=== PATIENT | female | born 1945 | race Caucasian/White ===

== ENCOUNTER 2017-08-28 00:21 | Inpatient (IN) | payer MEDICARE, OTHER, BC, MEDICAID ==
[2017-08-28] MEDS: ONDANSETRON 4 MG INJ IV (03:01)
[2017-08-28] MEDS: LOPERAMIDE 2 MG CAP PO (03:03)
[2017-08-28] MEDS: MECLIZINE 12.5 MG TAB PO (03:03)
[2017-08-28 03:06] LABS: ADD MAN DIFF? NO
[2017-08-28 03:07] LABS: BASOPHILS % 0.2 % (0.0-2.0); EOSINOPHILS # 0.2 10^3/ul (0.0-0.5); EOSINOPHILS % 1.2 % (0.0-7.0); HEMATOCRIT 35.4 % (37.0-47.0); HEMOGLOBIN 11.8 g/dl (12.0-16.0); LYMPHOCYTES # 1.4 10^3/ul (0.8-2.9); LYMPHOCYTES % 10.7 % (15.0-51.0); MEAN CORPUSCULAR HEMOGLOBIN 28.6 pg (29.0-33.0); MEAN CORPUSCULAR HGB CONC 33.3 g/dl (32.0-37.0); MEAN CORPUSCULAR VOLUME 85.9 fl (82.0-101.0); MEAN PLATELET VOLUME 11.9 fl (7.4-10.4); MONOCYTE # 1.1 10^3/ul (0.3-0.9); MONOCYTES % 8.6 % (0.0-11.0); NEUTROPHIL # 10.3 10^3/ul (1.6-7.5); PLATELET COUNT 189 10^3/UL (140-415); RED BLOOD COUNT 4.12 10^6/ul (4.20-5.40); RED CELL DISTRIBUTION WIDTH 12.6 % (11.5-14.5)
[2017-08-28 03:30] LABS: INR 0.83; PROTIME 11.5 Sec (11.9-14.9); PT RATIO 0.9
[2017-08-28 03:31] LABS: PARTIAL THROMBOPLASTIN TIME 30.3 Sec (25.0-35.0)
[2017-08-28 03:34] LABS: ALANINE AMINOTRANSFERASE 31 IU/L (13-69); ALBUMIN 3.8 g/dl (3.3-4.9); ALBUMIN/GLOBULIN RATIO 1.26; ALKALINE PHOSPHATASE 124 IU/L (42-121); ANION GAP 14 (8-16); ASPARTATE AMINO TRANSFERASE 31 IU/L (15-46); BILIRUBIN,INDIRECT 0.1 mg/dl (0-1.1); BILIRUBIN,TOTAL 0.1 mg/dl (0.2-1.3); BLOOD UREA NITROGEN 32 mg/dl (7-20); CALCIUM 8.4 mg/dl (8.4-10.2); CARBON DIOXIDE 23 mmol/L (21-31); CHLORIDE 96 mmol/L (97-110); CREATININE 1.78 mg/dl (0.44-1.00); GLUCOSE 104 mg/dl (70-220); LIPASE 72 U/L (23-300); POTASSIUM 5.8 mmol/L (3.5-5.1); SODIUM 127 mmol/L (135-144); TOTAL PROTEIN 6.8 g/dl (6.1-8.1)
[2017-08-28 04:03] LABS: URINE BLOOD (Dip) POC Negative (NEGATIVE); URINE GLUCOSE (Dip) POC Negative (NEGATIVE); URINE KETONES (Dip) POC Negative (NEGATIVE); URINE LEUKOCYTE EST (Dip) POC Trace (NEGATIVE); URINE NITRITE (Dip) POC Negative (NEGATIVE); URINE TOTAL PROTEIN POC Negative (NEGATIVE)
[2017-08-28] MEDS: ALBUTEROL 0.5% (NEB) 2.5 MG/0.5 ML AMP INH (04:13)
[2017-08-28] MEDS: DEXTROSE 50% 50 ML SYRINGE IV (05:11)
[2017-08-28] MEDS: SOD CHLORIDE 0.9% 500 ML IV (05:12)
[2017-08-28] MEDS: INSULIN REGULAR, HUMAN 100 UNIT/1 ML 3ML VIAL IV (05:13)
[2017-08-28] MEDS: SOD CHLORIDE 0.9% 1,000 ML IV ×2 (05:13→19:31)
[2017-08-28] MEDS: LEVOFLOXACIN 750MG/D5W (PMX) 150 ML IVPB (05:30)
[2017-08-28] MEDS ORDERED: ONDANSETRON 4 MG INJ IV (05:30)
[2017-08-28] MEDS ORDERED: NACL 0.9% 3 ML SYG IV (05:30)
[2017-08-28 08:07] LABS: B-TYPE NATRIURETIC PEPTIDE 2230 PG/ML (0-125)
[2017-08-28] MEDS: NA POLYST SULFON 15 GM/60 ML BTL PO (10:28)
[2017-08-28] MEDS: ENOXAPARIN 30 MG/0.3 ML SYG SC (10:56)
[2017-08-29 06:15] LABS: ADD MAN DIFF? NO
[2017-08-29 06:18] LABS: BASOPHILS % 0.4 % (0.0-2.0); EOSINOPHILS # 0.2 10^3/ul (0.0-0.5); EOSINOPHILS % 1.8 % (0.0-7.0); HEMATOCRIT 38.4 % (37.0-47.0); HEMOGLOBIN 12.3 g/dl (12.0-16.0); LYMPHOCYTES # 1.8 10^3/ul (0.8-2.9); LYMPHOCYTES % 21.1 % (15.0-51.0); MEAN CORPUSCULAR HEMOGLOBIN 28.6 pg (29.0-33.0); MEAN CORPUSCULAR VOLUME 89.3 fl (82.0-101.0); MEAN PLATELET VOLUME 11.6 fl (7.4-10.4); MONOCYTES % 12.4 % (0.0-11.0); NEUTROPHIL # 5.3 10^3/ul (1.6-7.5); NEUTROPHILS % 64.1 % (39.0-77.0); PLATELET COUNT 204 10^3/UL (140-415); RED CELL DISTRIBUTION WIDTH 13.2 % (11.5-14.5)
[2017-08-29 06:18] LABS: WHITE BLOOD COUNT 8.3 10^3/ul (4.8-10.8)
[2017-08-29 07:12] LABS: ALANINE AMINOTRANSFERASE 25 IU/L (13-69); ALBUMIN/GLOBULIN RATIO 1.21; ALKALINE PHOSPHATASE 111 IU/L (42-121); ANION GAP 14 (8-16); ASPARTATE AMINO TRANSFERASE 25 IU/L (15-46); BILIRUBIN,INDIRECT 0.2 mg/dl (0-1.1); BILIRUBIN,TOTAL 0.2 mg/dl (0.2-1.3); BLOOD UREA NITROGEN 15 mg/dl (7-20); CALCIUM 8.9 mg/dl (8.4-10.2); CARBON DIOXIDE 23 mmol/L (21-31); CHLORIDE 109 mmol/L (97-110); CHOL/HDL RATIO 4.7 RATIO; CHOLESTEROL 170 mg/dl (100-200); CREATININE 1.28 mg/dl (0.44-1.00); GLUCOSE 99 mg/dl (70-220); HDL CHOLESTEROL 36 mg/dl (33-92); LDL CHOLESTEROL,CALCULATED 105 mg/dl; POTASSIUM 5.1 mmol/L (3.5-5.1); SODIUM 141 mmol/L (135-144); TOTAL PROTEIN 7.3 g/dl (6.1-8.1); TRIGLYCERIDES 144 mg/dl (0-149)
[2017-08-29 08:01] LABS: HEMOGLOBIN A1C 5.9 % (0-5.9)
[2017-08-29 08:13] LABS: THYROID STIMULATING HORMONE 0.583 MIU/L (0.465-4.680)
[2017-08-29] MEDS: SOD CHLORIDE 0.9% 1,000 ML IV ×2 (09:49→18:51)
[2017-08-29] MEDS: ENOXAPARIN 30 MG/0.3 ML SYG SC (10:17)
[2017-08-30] MEDS: SOD CHLORIDE 0.9% 1,000 ML IV ×2 (00:07→09:09)
[2017-08-30] MEDS: LEVOFLOXACIN 750MG/D5W (PMX) 150 ML IVPB (05:42)
[2017-08-30] MEDS: ENOXAPARIN 30 MG/0.3 ML SYG SC (09:10)
[2017-08-30] MEDS: AMLODIPINE 5 MG TAB PO ×2 (12:00→13:55)
[2017-08-30 12:52] LABS: ANION GAP 12 (8-16); BLOOD UREA NITROGEN 14 mg/dl (7-20); CALCIUM 9.1 mg/dl (8.4-10.2); CARBON DIOXIDE 26 mmol/L (21-31); CHLORIDE 104 mmol/L (97-110); CREATININE 0.94 mg/dl (0.44-1.00); GLUCOSE 115 mg/dl (70-220); SODIUM 137 mmol/L (135-144)
[2017-08-30] MEDS: ACETAMINOPHEN 325 MG TAB PO (20:54)
[2017-08-30] MEDS: hydrALAzine 20 MG INJ IV (20:54)
[2017-08-30] MEDS ORDERED: morphine 4 MG/ML VIAL (22:42)
[2017-08-30] MEDS: morphine 2 MG INJ IV (22:43)
[2017-08-31 05:03] LABS: ADD MAN DIFF? NO
[2017-08-31 05:08] LABS: BASOPHILS % 0.4 % (0.0-2.0); EOSINOPHILS # 0.3 10^3/ul (0.0-0.5); EOSINOPHILS % 2.9 % (0.0-7.0); HEMATOCRIT 35.3 % (37.0-47.0); HEMOGLOBIN 11.6 g/dl (12.0-16.0); LYMPHOCYTES # 2.2 10^3/ul (0.8-2.9); LYMPHOCYTES % 23.8 % (15.0-51.0); MEAN CORPUSCULAR HGB CONC 32.9 g/dl (32.0-37.0); MEAN CORPUSCULAR VOLUME 88.3 fl (82.0-101.0); MEAN PLATELET VOLUME 11.9 fl (7.4-10.4); MONOCYTE # 0.9 10^3/ul (0.3-0.9); MONOCYTES % 10.2 % (0.0-11.0); NEUTROPHIL # 5.6 10^3/ul (1.6-7.5); NEUTROPHILS % 62.4 % (39.0-77.0); PLATELET COUNT 186 10^3/UL (140-415); RED CELL DISTRIBUTION WIDTH 13.1 % (11.5-14.5)
[2017-08-31] MEDS: SOD CHLORIDE 0.9% 1,000 ML IV ×2 (05:15→08:32)
[2017-08-31 05:46] LABS: ANION GAP 14 (8-16); BLOOD UREA NITROGEN 14 mg/dl (7-20); CALCIUM 8.8 mg/dl (8.4-10.2); CARBON DIOXIDE 24 mmol/L (21-31); CHLORIDE 102 mmol/L (97-110); CREATININE 0.98 mg/dl (0.44-1.00); GLUCOSE 109 mg/dl (70-220); POTASSIUM 4.7 mmol/L (3.5-5.1); SODIUM 135 mmol/L (135-144)
[2017-08-31] MEDS: ACETAMINOPHEN 325 MG TAB PO ×2 (08:29→16:21)
[2017-08-31] MEDS: AMLODIPINE 5 MG TAB PO (08:30)
[2017-08-31] MEDS: ENOXAPARIN 30 MG/0.3 ML SYG SC (08:31)
[2017-08-31] MEDS: hydrALAzine 20 MG INJ IV (11:30)
[2017-08-31] MEDS: morphine 2 MG INJ IV (21:38)
[2017-09-01 05:07] LABS: WHITE BLOOD COUNT 9.2 10^3/ul (4.8-10.8)
[2017-09-01 05:07] LABS: ADD MAN DIFF? NO; BASOPHILS % 0.4 % (0.0-2.0); EOSINOPHILS # 0.4 10^3/ul (0.0-0.5); EOSINOPHILS % 3.9 % (0.0-7.0); HEMATOCRIT 37.4 % (37.0-47.0); LYMPHOCYTES # 2.2 10^3/ul (0.8-2.9); LYMPHOCYTES % 23.7 % (15.0-51.0); MEAN CORPUSCULAR HEMOGLOBIN 28.7 pg (29.0-33.0); MEAN CORPUSCULAR HGB CONC 32.1 g/dl (32.0-37.0); MEAN CORPUSCULAR VOLUME 89.5 fl (82.0-101.0); MEAN PLATELET VOLUME 11.7 fl (7.4-10.4); MONOCYTE # 0.9 10^3/ul (0.3-0.9); MONOCYTES % 10.2 % (0.0-11.0); NEUTROPHIL # 5.6 10^3/ul (1.6-7.5); NEUTROPHILS % 61.5 % (39.0-77.0); PLATELET COUNT 224 10^3/UL (140-415); RED BLOOD COUNT 4.18 10^6/ul (4.20-5.40); RED CELL DISTRIBUTION WIDTH 13.2 % (11.5-14.5)
[2017-09-01] MEDS: LEVOFLOXACIN 750 MG TABLET PO (05:11)
[2017-09-01 05:36] LABS: ANION GAP 14 (8-16); BLOOD UREA NITROGEN 16 mg/dl (7-20); CALCIUM 9.2 mg/dl (8.4-10.2); CARBON DIOXIDE 27 mmol/L (21-31); CHLORIDE 104 mmol/L (97-110); GLUCOSE 106 mg/dl (70-220); POTASSIUM 4.7 mmol/L (3.5-5.1); SODIUM 140 mmol/L (135-144)
[2017-09-01] MEDS: ACETAMINOPHEN 325 MG TAB PO (07:07)
[2017-09-01] MEDS: AMLODIPINE 5 MG TAB PO (08:27)
[2017-09-01] MEDS: ENOXAPARIN 30 MG/0.3 ML SYG SC (08:28)
[2017-09-01] MEDS: LOSARTAN 25 MG TAB PO (08:28)
[2017-09-01] MEDS: SOD CHLORIDE 0.9% 1,000 ML IV (09:19)
[2017-09-01] MEDS: REGADENOSON 0.4 MG/5 ML SYG ×2 (11:31→12:45)
== END 2017-09-01 20:35 | disposition home or self-care (01) | DRG 682 ==
LOC: E/R 00:21 → MS3 04:23
DX: N17.9 Acute kidney failure, unspecified (principal); J18.9 Pneumonia, unspecified organism; E87.5 Hyperkalemia; E87.1 Hypo-osmolality and hyponatremia; D72.829 Elevated white blood cell count, unspecified; J45.909 Unspecified asthma, uncomplicated; R91.1 Solitary pulmonary nodule; I10 Essential (primary) hypertension; B34.9 Viral infection, unspecified
CPT/HCPCS: 36415; 70450; 71045; 71250; 74176; 78452; 80048; 80053; 80061; 81003; 82962; 83036; 83690; 83880; 84443; 85025; 85610; 85730; 87086; 93005; 93017; 93306; 94644; 96374; 96375; 99285-25

== ENCOUNTER 2017-09-07 10:46 | Inpatient (IN) | payer MEDICARE, OTHER ==
[2017-09-07] MEDS: ALBUTEROL 0.5% (NEB) 2.5 MG/0.5 ML AMP INH (16:21)
[2017-09-07] MEDS: IPRATROPIUM (NEB) 0.5 MG/2.5 ML AMP INH (16:21)
[2017-09-07] MEDS: METHYLPREDNISOLONE 125 MG INJ IV (16:28)
[2017-09-07 16:30] LABS: ADD MAN DIFF? NO
[2017-09-07 16:32] LABS: WHITE BLOOD COUNT 12.1 10^3/ul (4.8-10.8)
[2017-09-07 16:32] LABS: BASOPHILS % 0.3 % (0.0-2.0); EOSINOPHILS # 0.1 10^3/ul (0.0-0.5); EOSINOPHILS % 0.5 % (0.0-7.0); HEMATOCRIT 36.6 % (37.0-47.0); HEMOGLOBIN 12.2 g/dl (12.0-16.0); LYMPHOCYTES # 1.6 10^3/ul (0.8-2.9); LYMPHOCYTES % 13.3 % (15.0-51.0); MEAN CORPUSCULAR HEMOGLOBIN 29.4 pg (29.0-33.0); MEAN CORPUSCULAR HGB CONC 33.3 g/dl (32.0-37.0); MEAN CORPUSCULAR VOLUME 88.2 fl (82.0-101.0); MEAN PLATELET VOLUME 11.5 fl (7.4-10.4); NEUTROPHIL # 9.4 10^3/ul (1.6-7.5); NEUTROPHILS % 77.6 % (39.0-77.0); PLATELET COUNT 234 10^3/UL (140-415); RED BLOOD COUNT 4.15 10^6/ul (4.20-5.40); RED CELL DISTRIBUTION WIDTH 13.1 % (11.5-14.5)
[2017-09-07] MEDS: ONDANSETRON 4 MG INJ IV (16:44)
[2017-09-07 16:53] LABS: INR 0.88; PT RATIO 0.9
[2017-09-07 16:54] LABS: PARTIAL THROMBOPLASTIN TIME 31.5 Sec (25.0-35.0)
[2017-09-07 16:57] LABS: ALANINE AMINOTRANSFERASE 21 IU/L (13-69); ALBUMIN 4.3 g/dl (3.3-4.9); ALBUMIN/GLOBULIN RATIO 1.26; ALKALINE PHOSPHATASE 104 IU/L (42-121); ANION GAP 17 (8-16); ASPARTATE AMINO TRANSFERASE 27 IU/L (15-46); BILIRUBIN,INDIRECT 0.2 mg/dl (0-1.1); BILIRUBIN,TOTAL 0.2 mg/dl (0.2-1.3); BLOOD UREA NITROGEN 22 mg/dl (7-20); CALCIUM 8.8 mg/dl (8.4-10.2); CARBON DIOXIDE 22 mmol/L (21-31); CHLORIDE 104 mmol/L (97-110); CREATINE KINASE 62 IU/L (23-200); CREATININE 0.98 mg/dl (0.44-1.00); GLUCOSE 123 mg/dl (70-220); POTASSIUM 4.8 mmol/L (3.5-5.1); SODIUM 138 mmol/L (135-144); TOTAL PROTEIN 7.7 g/dl (6.1-8.1)
[2017-09-07 16:58] LABS: AADO2 Arterial 273.4 mmHg (7.0-24.0); Allen Test ACCEPTAB; Arterial Base Excess -1.7 mmol/L (-3.0-3); Arterial Blood Gas Oxygen Sat 97.9 mmHG (95.0-100.0); Arterial COHb 0.4 % (0.0-3.0); Arterial Fraction of Oxyhgb 97.4 % (93.0-99.0); Arterial HCO3 22.8 mmol/L (22.0-26.0); Arterial MetHb 0.1 % (0.0-1.5); Arterial Total Hemglobin 12.3 g/dl (12.0-18.0); Arterial pCO2 37.5 mmhg (35-45); MODE MASK - SIMPLE; Site Right Radial
[2017-09-07 17:08] LABS: B-TYPE NATRIURETIC PEPTIDE 3190 PG/ML (0-125); CK INDEX 1.7; CK-MB 1.07 ng/ml (0.0-2.4)
[2017-09-07 17:18] LABS: TROPONIN-I < 0.012 ng/ml (0.00-0.12)
[2017-09-07] MEDS ORDERED: ACETAMINOPHEN 325 MG TAB PO (18:00)
[2017-09-07] MEDS ORDERED: ONDANSETRON 4 MG INJ IV (18:00)
[2017-09-07] MEDS: SODIUM CHLORIDE 0.9% 1L BAG IV* (18:04)
[2017-09-07] MEDS: PIPER-TAZO 3.375 GM IV (PMX) 100 ML IVPB (18:21)
[2017-09-07] MEDS ORDERED: AZITHROMYCIN 500MG/NS (PMX) 250 ML IVPB (19:00)
[2017-09-07] MEDS ORDERED: CEFTRIAXONE 1 GM/50 ML (PMX) 50 ML IVPB ×2 (19:00→23:30)
[2017-09-07] MEDS: LEVALBUTEROL (NEB) 0.63 MG/3 ML AMP HHN (19:30)
[2017-09-07] MEDS: VANCOMYCIN 1 GM (PMX) 250 ML IVPB (19:39)
[2017-09-07 20:15] LABS: LACTIC ACID 1.3 mmol/L (0.5-2.0)
[2017-09-07] MEDS: ENOXAPARIN 40 MG/0.4 ML SYG SC (21:32)
[2017-09-07] MEDS: SOD CHLORIDE 0.9% 100 ML (21:40)
[2017-09-07] MEDS: IOHEXOL 300MG/ML 150 ML BTL (21:41)
[2017-09-07 22:50] LABS: LACTIC ACID 2.3 mmol/L (0.5-2.0)
[2017-09-07] MEDS: CEFTRIAXONE 1 GM/50 ML (PMX) 50 ML IVPB (23:10)
[2017-09-07] MEDS: AZITHROMYCIN 500MG/NS (PMX) 250 ML IVPB (23:37)
[2017-09-07] MEDS: ACETAMINOPHEN 325 MG TAB PO (23:49)
[2017-09-08 05:59] LABS: ADD MAN DIFF? NO
[2017-09-08 06:07] LABS: HEMATOCRIT 32.6 % (37.0-47.0); HEMOGLOBIN 10.7 g/dl (12.0-16.0); LYMPHOCYTES # 0.8 10^3/ul (0.8-2.9); LYMPHOCYTES % 12.5 % (15.0-51.0); MEAN CORPUSCULAR HEMOGLOBIN 29.2 pg (29.0-33.0); MEAN CORPUSCULAR HGB CONC 32.8 g/dl (32.0-37.0); MEAN CORPUSCULAR VOLUME 89.1 fl (82.0-101.0); MONOCYTES % 0.7 % (0.0-11.0); NEUTROPHIL # 5.2 10^3/ul (1.6-7.5); NEUTROPHILS % 86.3 % (39.0-77.0); PLATELET COUNT 207 10^3/UL (140-415); RED BLOOD COUNT 3.66 10^6/ul (4.20-5.40); RED CELL DISTRIBUTION WIDTH 13.3 % (11.5-14.5)
[2017-09-08 06:22] LABS: LACTIC ACID 0.8 mmol/L (0.5-2.0)
[2017-09-08 06:30] LABS: BLOOD UREA NITROGEN 23 mg/dl (7-20); CALCIUM 8.7 mg/dl (8.4-10.2); CARBON DIOXIDE 22 mmol/L (21-31); CHLORIDE 105 mmol/L (97-110); CREATININE 1.09 mg/dl (0.44-1.00); GLUCOSE 148 mg/dl (70-220); SODIUM 138 mmol/L (135-144)
[2017-09-08 06:34] LABS: CREATINE KINASE 46 IU/L (23-200)
[2017-09-08 06:47] LABS: CK INDEX 2.2; CK-MB 1.02 ng/ml (0.0-2.4)
[2017-09-08 07:22] LABS: TROPONIN-I < 0.012 ng/ml (0.00-0.12)
[2017-09-08 07:25] LABS: ANION GAP 16 (8-16)
[2017-09-08] MEDS: LOSARTAN 25 MG TAB PO ×2 (08:28→08:30)
[2017-09-08] MEDS: ENOXAPARIN 40 MG/0.4 ML SYG SC (08:34)
[2017-09-08] MEDS: LEVALBUTEROL (NEB) 0.63 MG/3 ML AMP HHN ×3 (09:00→16:58)
[2017-09-08] MEDS: CEFTRIAXONE 1 GM/50 ML (PMX) 50 ML IVPB (21:27)
[2017-09-08] MEDS: AZITHROMYCIN 500MG/NS (PMX) 250 ML IVPB (22:35)
[2017-09-09 05:50] LABS: ADD MAN DIFF? NO
[2017-09-09 05:58] LABS: BASOPHILS % 0.1 % (0.0-2.0); EOSINOPHILS # 0.1 10^3/ul (0.0-0.5); EOSINOPHILS % 0.5 % (0.0-7.0); HEMATOCRIT 31.7 % (37.0-47.0); HEMOGLOBIN 10.1 g/dl (12.0-16.0); LYMPHOCYTES # 2.3 10^3/ul (0.8-2.9); LYMPHOCYTES % 16.3 % (15.0-51.0); MEAN CORPUSCULAR HEMOGLOBIN 28.9 pg (29.0-33.0); MEAN CORPUSCULAR HGB CONC 31.9 g/dl (32.0-37.0); MEAN CORPUSCULAR VOLUME 90.8 fl (82.0-101.0); MEAN PLATELET VOLUME 11.9 fl (7.4-10.4); MONOCYTE # 1.2 10^3/ul (0.3-0.9); MONOCYTES % 8.4 % (0.0-11.0); NEUTROPHIL # 10.2 10^3/ul (1.6-7.5); NEUTROPHILS % 74.3 % (39.0-77.0); PLATELET COUNT 215 10^3/UL (140-415); RED BLOOD COUNT 3.49 10^6/ul (4.20-5.40); RED CELL DISTRIBUTION WIDTH 13.8 % (11.5-14.5)
[2017-09-09 05:58] LABS: WHITE BLOOD COUNT 13.8 10^3/ul (4.8-10.8)
[2017-09-09 06:35] LABS: ANION GAP 13 (8-16); BLOOD UREA NITROGEN 32 mg/dl (7-20); CALCIUM 8.4 mg/dl (8.4-10.2); CARBON DIOXIDE 26 mmol/L (21-31); CHLORIDE 105 mmol/L (97-110); CREATININE 1.19 mg/dl (0.44-1.00); GLUCOSE 108 mg/dl (70-220); MAGNESIUM 2.3 mg/dl (1.7-2.5); POTASSIUM 5.7 mmol/L (3.5-5.1); SODIUM 138 mmol/L (135-144)
[2017-09-09] MEDS: ACETAMINOPHEN 325 MG TAB PO (07:52)
[2017-09-09] MEDS: NITROGLYCERIN (SL) 0.4 MG TAB SL (08:16)
[2017-09-09] MEDS: LOSARTAN 25 MG TAB PO (08:17)
[2017-09-09] MEDS: ENOXAPARIN 40 MG/0.4 ML SYG SC (08:22)
[2017-09-09] MEDS: LEVALBUTEROL (NEB) 0.63 MG/3 ML AMP HHN ×2 (08:26→13:57)
[2017-09-09 09:25] LABS: TROPONIN-I < 0.012 ng/ml (0.00-0.12)
[2017-09-09] MEDS: NA POLYST SULFON 15 GM/60 ML BTL PO (15:22)
[2017-09-09 15:47] LABS: CHOL/HDL RATIO 4.5 RATIO; HDL CHOLESTEROL 32 mg/dl (33-92); LDL CHOLESTEROL,CALCULATED 91 mg/dl; TRIGLYCERIDES 107 mg/dl (0-149)
[2017-09-09 15:47] LABS: CHOLESTEROL 144 mg/dl (100-200)
[2017-09-09 16:29] LABS: B-TYPE NATRIURETIC PEPTIDE 4210 PG/ML (0-125)
[2017-09-09 17:30] LABS: TROPONIN-I < 0.012 ng/ml (0.00-0.12)
[2017-09-09] MEDS ORDERED: METOPROLOL 5 MG INJ IV (18:00)
[2017-09-09] MEDS: FUROSEMIDE 20 MG INJ IV (18:38)
[2017-09-09 18:49] LABS: CREATINE KINASE 85 IU/L (23-200)
[2017-09-09 18:58] LABS: CK INDEX 1.4; CK-MB 1.17 ng/ml (0.0-2.4)
[2017-09-09 19:03] LABS: TROPONIN-I < 0.012 ng/ml (0.00-0.12)
[2017-09-09] MEDS: METOPROLOL 25 MG TAB PO (21:26)
[2017-09-09] MEDS: CEFTRIAXONE 1 GM/50 ML (PMX) 50 ML IVPB (21:26)
[2017-09-09 23:08] LABS: TROPONIN-I 0.012 ng/ml (0.00-0.12)
[2017-09-09] MEDS: AZITHROMYCIN 500MG/NS (PMX) 250 ML IVPB (23:23)
[2017-09-10 01:20] LABS: CREATINE KINASE 67 IU/L (23-200)
[2017-09-10 01:32] LABS: CK INDEX 1.4; CK-MB 0.96 ng/ml (0.0-2.4)
[2017-09-10 01:36] LABS: TROPONIN-I < 0.012 ng/ml (0.00-0.12)
[2017-09-10] MEDS: FUROSEMIDE 20 MG INJ IV ×2 (06:27→17:59)
[2017-09-10] MEDS: ENOXAPARIN 80 MG/0.8 ML SYG SC ×2 (08:17→20:35)
[2017-09-10] MEDS: METOPROLOL 25 MG TAB PO ×2 (08:18→20:29)
[2017-09-10 10:06] LABS: ADD MAN DIFF? NO
[2017-09-10] MEDS: LEVALBUTEROL (NEB) 0.63 MG/3 ML AMP HHN ×3 (10:14→17:40)
[2017-09-10 10:23] LABS: WHITE BLOOD COUNT 10.1 10^3/ul (4.8-10.8)
[2017-09-10 10:23] LABS: BASOPHIL # 0.1 10^3/ul (0.0-0.1); BASOPHILS % 0.5 % (0.0-2.0); EOSINOPHILS # 0.4 10^3/ul (0.0-0.5); EOSINOPHILS % 3.5 % (0.0-7.0); HEMATOCRIT 40.1 % (37.0-47.0); LYMPHOCYTES # 2.2 10^3/ul (0.8-2.9); MEAN CORPUSCULAR HEMOGLOBIN 28.8 pg (29.0-33.0); MEAN CORPUSCULAR HGB CONC 32.4 g/dl (32.0-37.0); MEAN CORPUSCULAR VOLUME 88.7 fl (82.0-101.0); MEAN PLATELET VOLUME 12.4 fl (7.4-10.4); MONOCYTE # 1.1 10^3/ul (0.3-0.9); MONOCYTES % 10.7 % (0.0-11.0); NEUTROPHIL # 6.4 10^3/ul (1.6-7.5); PLATELET COUNT 276 10^3/UL (140-415); RED BLOOD COUNT 4.52 10^6/ul (4.20-5.40); RED CELL DISTRIBUTION WIDTH 13.3 % (11.5-14.5)
[2017-09-10 10:38] LABS: CHOL/HDL RATIO 4.3 RATIO; HDL CHOLESTEROL 39 mg/dl (33-92); LDL CHOLESTEROL,CALCULATED 99 mg/dl; TRIGLYCERIDES 158 mg/dl (0-149)
[2017-09-10 10:38] LABS: CHOLESTEROL 170 mg/dl (100-200)
[2017-09-10 10:41] LABS: ANION GAP 13 (8-16); BLOOD UREA NITROGEN 23 mg/dl (7-20); CALCIUM 8.9 mg/dl (8.4-10.2); CARBON DIOXIDE 29 mmol/L (21-31); CHLORIDE 101 mmol/L (97-110); CREATININE 1.05 mg/dl (0.44-1.00); GLUCOSE 117 mg/dl (70-220); SODIUM 139 mmol/L (135-144)
[2017-09-10] MEDS: CEFTRIAXONE 1 GM/50 ML (PMX) 50 ML IVPB (21:18)
[2017-09-10] MEDS: AZITHROMYCIN 500MG/NS (PMX) 250 ML IVPB (22:19)
[2017-09-11] MEDS: FUROSEMIDE 20 MG INJ IV (06:19)
[2017-09-11 07:45] LABS: ADD MAN DIFF? NO
[2017-09-11 07:48] LABS: WHITE BLOOD COUNT 8.5 10^3/ul (4.8-10.8)
[2017-09-11 07:48] LABS: BASOPHILS % 0.5 % (0.0-2.0); EOSINOPHILS # 0.3 10^3/ul (0.0-0.5); EOSINOPHILS % 3.8 % (0.0-7.0); HEMATOCRIT 39.4 % (37.0-47.0); HEMOGLOBIN 12.9 g/dl (12.0-16.0); LYMPHOCYTES # 2.5 10^3/ul (0.8-2.9); LYMPHOCYTES % 29.2 % (15.0-51.0); MEAN CORPUSCULAR HEMOGLOBIN 28.6 pg (29.0-33.0); MEAN CORPUSCULAR HGB CONC 32.7 g/dl (32.0-37.0); MEAN CORPUSCULAR VOLUME 87.4 fl (82.0-101.0); MEAN PLATELET VOLUME 11.8 fl (7.4-10.4); MONOCYTES % 11.8 % (0.0-11.0); NEUTROPHIL # 4.6 10^3/ul (1.6-7.5); NEUTROPHILS % 54.3 % (39.0-77.0); PLATELET COUNT 280 10^3/UL (140-415); RED BLOOD COUNT 4.51 10^6/ul (4.20-5.40); RED CELL DISTRIBUTION WIDTH 12.8 % (11.5-14.5)
[2017-09-11 08:00] LABS: ANION GAP 14 (8-16); BLOOD UREA NITROGEN 23 mg/dl (7-20); CARBON DIOXIDE 29 mmol/L (21-31); CHLORIDE 97 mmol/L (97-110); CREATININE 0.98 mg/dl (0.44-1.00); GLUCOSE 110 mg/dl (70-220); MAGNESIUM 1.9 mg/dl (1.7-2.5); SODIUM 136 mmol/L (135-144)
[2017-09-11] MEDS: METOPROLOL 25 MG TAB PO ×2 (09:19→21:25)
[2017-09-11] MEDS: ENOXAPARIN 80 MG/0.8 ML SYG SC (09:22)
[2017-09-11] MEDS: LEVALBUTEROL (NEB) 0.63 MG/3 ML AMP HHN ×3 (09:56→16:39)
[2017-09-11] MEDS: FUROSEMIDE 20 MG TAB PO (17:34)
[2017-09-11] MEDS: APIXABAN 5 MG TABLET PO (21:22)
[2017-09-11] MEDS: CEFTRIAXONE 1 GM/50 ML (PMX) 50 ML IVPB (22:00)
[2017-09-11] MEDS: AZITHROMYCIN 500MG/NS (PMX) 250 ML IVPB (23:14)
[2017-09-12] MEDS: FUROSEMIDE 20 MG TAB PO ×2 (05:45→18:47)
[2017-09-12] MEDS: LEVALBUTEROL (NEB) 0.63 MG/3 ML AMP HHN ×3 (07:37→17:15)
[2017-09-12 08:29] LABS: ADD MAN DIFF? NO
[2017-09-12 08:34] LABS: BASOPHIL # 0.1 10^3/ul (0.0-0.1); BASOPHILS % 0.7 % (0.0-2.0); EOSINOPHILS # 0.4 10^3/ul (0.0-0.5); EOSINOPHILS % 5.5 % (0.0-7.0); HEMOGLOBIN 12.2 g/dl (12.0-16.0); LYMPHOCYTES # 2.3 10^3/ul (0.8-2.9); LYMPHOCYTES % 30.5 % (15.0-51.0); MEAN CORPUSCULAR VOLUME 88.1 fl (82.0-101.0); MEAN PLATELET VOLUME 11.9 fl (7.4-10.4); MONOCYTE # 0.9 10^3/ul (0.3-0.9); MONOCYTES % 11.3 % (0.0-11.0); NEUTROPHIL # 3.9 10^3/ul (1.6-7.5); NEUTROPHILS % 51.7 % (39.0-77.0); PLATELET COUNT 262 10^3/UL (140-415); RED CELL DISTRIBUTION WIDTH 12.7 % (11.5-14.5)
[2017-09-12 08:34] LABS: WHITE BLOOD COUNT 7.5 10^3/ul (4.8-10.8)
[2017-09-12] MEDS: METOPROLOL 25 MG TAB PO ×2 (08:55→21:28)
[2017-09-12] MEDS: APIXABAN 5 MG TABLET PO ×2 (08:56→21:27)
[2017-09-12 09:05] LABS: ANION GAP 15 (8-16); BLOOD UREA NITROGEN 25 mg/dl (7-20); CALCIUM 8.5 mg/dl (8.4-10.2); CARBON DIOXIDE 32 mmol/L (21-31); CHLORIDE 97 mmol/L (97-110); CREATININE 1.03 mg/dl (0.44-1.00); GLUCOSE 100 mg/dl (70-220); POTASSIUM 3.9 mmol/L (3.5-5.1); SODIUM 140 mmol/L (135-144)
[2017-09-12] MEDS: CEFTRIAXONE 1 GM/50 ML (PMX) 50 ML IVPB (21:28)
[2017-09-12] MEDS: AZITHROMYCIN 500MG/NS (PMX) 250 ML IVPB (23:31)
[2017-09-13 05:20] LABS: ADD MAN DIFF? NO
[2017-09-13] MEDS: FUROSEMIDE 20 MG TAB PO ×2 (05:25→17:59)
[2017-09-13 05:33] LABS: BASOPHILS % 0.4 % (0.0-2.0); EOSINOPHILS # 0.5 10^3/ul (0.0-0.5); EOSINOPHILS % 7.1 % (0.0-7.0); HEMATOCRIT 36.1 % (37.0-47.0); HEMOGLOBIN 11.9 g/dl (12.0-16.0); LYMPHOCYTES # 2.1 10^3/ul (0.8-2.9); LYMPHOCYTES % 30.2 % (15.0-51.0); MEAN CORPUSCULAR VOLUME 87.8 fl (82.0-101.0); MEAN PLATELET VOLUME 11.7 fl (7.4-10.4); MONOCYTE # 0.9 10^3/ul (0.3-0.9); MONOCYTES % 12.7 % (0.0-11.0); NEUTROPHIL # 3.5 10^3/ul (1.6-7.5); NEUTROPHILS % 49.2 % (39.0-77.0); PLATELET COUNT 248 10^3/UL (140-415); RED BLOOD COUNT 4.11 10^6/ul (4.20-5.40); RED CELL DISTRIBUTION WIDTH 12.6 % (11.5-14.5)
[2017-09-13 06:07] LABS: ANION GAP 11 (8-16); BLOOD UREA NITROGEN 18 mg/dl (7-20); CALCIUM 8.9 mg/dl (8.4-10.2); CARBON DIOXIDE 30 mmol/L (21-31); CHLORIDE 96 mmol/L (97-110); CREATININE 0.94 mg/dl (0.44-1.00); GLUCOSE 102 mg/dl (70-220); POTASSIUM 4.3 mmol/L (3.5-5.1); SODIUM 133 mmol/L (135-144)
[2017-09-13] MEDS: LEVALBUTEROL (NEB) 0.63 MG/3 ML AMP HHN ×3 (08:43→19:08)
[2017-09-13] MEDS: METOPROLOL 25 MG TAB PO ×2 (08:54→20:40)
[2017-09-13] MEDS: APIXABAN 5 MG TABLET PO ×2 (08:54→20:40)
[2017-09-13] MEDS: CEFTRIAXONE 1 GM/50 ML (PMX) 50 ML IVPB (21:32)
[2017-09-13] MEDS: AZITHROMYCIN 500MG/NS (PMX) 250 ML IVPB (22:51)
[2017-09-14] MEDS: FUROSEMIDE 20 MG TAB PO ×2 (05:32→17:25)
[2017-09-14 06:03] LABS: ADD MAN DIFF? NO
[2017-09-14 06:13] LABS: BASOPHILS % 0.5 % (0.0-2.0); EOSINOPHILS # 0.4 10^3/ul (0.0-0.5); EOSINOPHILS % 5.1 % (0.0-7.0); HEMATOCRIT 37.5 % (37.0-47.0); HEMOGLOBIN 12.2 g/dl (12.0-16.0); LYMPHOCYTES # 2.7 10^3/ul (0.8-2.9); LYMPHOCYTES % 34.6 % (15.0-51.0); MEAN CORPUSCULAR HEMOGLOBIN 28.4 pg (29.0-33.0); MEAN CORPUSCULAR HGB CONC 32.5 g/dl (32.0-37.0); MEAN CORPUSCULAR VOLUME 87.2 fl (82.0-101.0); MEAN PLATELET VOLUME 11.8 fl (7.4-10.4); MONOCYTES % 13.1 % (0.0-11.0); NEUTROPHIL # 3.5 10^3/ul (1.6-7.5); NEUTROPHILS % 46.2 % (39.0-77.0); PLATELET COUNT 264 10^3/UL (140-415); RED CELL DISTRIBUTION WIDTH 12.3 % (11.5-14.5)
[2017-09-14 06:13] LABS: WHITE BLOOD COUNT 7.7 10^3/ul (4.8-10.8)
[2017-09-14 06:40] LABS: ANION GAP 10 (8-16); BLOOD UREA NITROGEN 23 mg/dl (7-20); CALCIUM 8.9 mg/dl (8.4-10.2); CARBON DIOXIDE 33 mmol/L (21-31); CHLORIDE 94 mmol/L (97-110); CREATININE 0.98 mg/dl (0.44-1.00); GLUCOSE 98 mg/dl (70-220); POTASSIUM 4.2 mmol/L (3.5-5.1); SODIUM 133 mmol/L (135-144)
[2017-09-14] MEDS: APIXABAN 5 MG TABLET PO (08:21)
[2017-09-14] MEDS: METOPROLOL 25 MG TAB PO (08:21)
[2017-09-14] MEDS: LEVALBUTEROL (NEB) 0.63 MG/3 ML AMP HHN ×3 (08:30→16:54)
== END 2017-09-14 19:50 | disposition home or self-care (01) | DRG 291 ==
LOC: MS2 09-12 13:33 → E/R 10:46 → MS4 09-09 17:58 → MS3 22:38
DX: I11.0 Hypertensive heart disease with heart failure (principal); J18.9 Pneumonia, unspecified organism; N17.9 Acute kidney failure, unspecified; E87.5 Hyperkalemia; I48.91 Unspecified atrial fibrillation; D64.9 Anemia, unspecified; J20.9 Acute bronchitis, unspecified; I50.33 Acute on chronic diastolic (congestive) heart failure; E66.9 Obesity, unspecified; Z68.31 Body mass index [BMI] 31.0-31.9, adult; J45.909 Unspecified asthma, uncomplicated; E78.5 Hyperlipidemia, unspecified; R09.02 Hypoxemia; R91.1 Solitary pulmonary nodule; I08.0 Rheumatic disorders of both mitral and aortic valves
CPT/HCPCS: 36600; 71045; 71260; 80048; 80053; 80061; 82550; 82553; 82803; 83605; 83735; 83880; 84443; 84484; 85025; 85610; 85730; 86850; 86900; 86901; 87040; 87081; 87400; 93005; 94640; 94644; 94664; 96365; 96372; 96375; 97162; 99285-25; J1940

== ENCOUNTER 2017-12-21 09:52 | Emergency (ER) | payer MEDICARE, OTHER ==
[2017-12-21] MEDS: LIDOCAINE 1% (MDV) 10 ML INJ INFIL (11:24)
[2017-12-21] MEDS: ACETAMINOPHEN 325 MG TAB PO (11:26)
[2017-12-21] MEDS: DIPHTH/TET/ACEL PERTUSS (ADULT) 0.5 ML VIAL IM* (11:28)
== END 2017-12-21 12:42 | disposition home or self-care (01) ==
LOC: FTE 09:52
DX: S81.812A Laceration without foreign body, left lower leg, initial encounter (principal); I10 Essential (primary) hypertension; J45.909 Unspecified asthma, uncomplicated; W07.XXXA Fall from chair, initial encounter; Y92.9 Unspecified place or not applicable; Z23 Encounter for immunization
CPT/HCPCS: 12002; 90471; 90715; 99283-25

== ENCOUNTER 2018-11-03 21:52 | Emergency (ER) | payer MEDICARE, OTHER ==
[2018-11-03 23:01] LABS: ADD MAN DIFF? NO
[2018-11-03 23:08] LABS: WHITE BLOOD COUNT 9.8 10^3/ul (4.8-10.8)
[2018-11-03 23:08] LABS: BASOPHILS % 0.4 % (0.0-2.0); EOSINOPHILS # 0.4 10^3/ul (0.0-0.5); EOSINOPHILS % 4.1 % (0.0-7.0); HEMATOCRIT 37.6 % (37.0-47.0); LYMPHOCYTES # 2.2 10^3/ul (0.8-2.9); LYMPHOCYTES % 22.7 % (15.0-51.0); MEAN CORPUSCULAR HEMOGLOBIN 27.5 pg (29.0-33.0); MEAN CORPUSCULAR HGB CONC 31.9 g/dl (32.0-37.0); MEAN PLATELET VOLUME 11.7 fl (7.4-10.4); MONOCYTES % 10.1 % (0.0-11.0); NEUTROPHIL # 6.1 10^3/ul (1.6-7.5); NEUTROPHILS % 62.2 % (39.0-77.0); PLATELET COUNT 201 10^3/UL (140-415); RED BLOOD COUNT 4.37 10^6/ul (4.20-5.40); RED CELL DISTRIBUTION WIDTH 13.2 % (11.5-14.5)
[2018-11-03 23:12] LABS: URINE BLOOD (Dip) POC Trace-intact (NEGATIVE); URINE GLUCOSE (Dip) POC Negative (NEGATIVE); URINE KETONES (Dip) POC Negative (NEGATIVE); URINE LEUKOCYTE EST (Dip) POC 1+ (NEGATIVE); URINE NITRITE (Dip) POC Negative (NEGATIVE); URINE TOTAL PROTEIN POC Negative (NEGATIVE)
[2018-11-03 23:12] LABS: URINE PH (Dip) POC 5.5 (5.0-8.5)
[2018-11-03 23:27] LABS: ANION GAP 10 (5-13); BLOOD UREA NITROGEN 33 mg/dl (7-20); CALCIUM 8.8 mg/dl (8.4-10.2); CARBON DIOXIDE 25 mmol/L (21-31); CHLORIDE 101 mmol/L (97-110); GLUCOSE 98 mg/dl (70-220); POTASSIUM 4.2 mmol/L (3.5-5.1); SODIUM 136 mmol/L (135-144)
[2018-11-03 23:38] LABS: B-TYPE NATRIURETIC PEPTIDE 557 PG/ML (0-125); TROPONIN-I < 0.012 ng/ml (0.000-0.120)
[2018-11-03 23:40] LABS: INR 0.93; PARTIAL THROMBOPLASTIN TIME 31.7 Sec (23.0-35.0); PROTIME 12.6 Sec (11.9-14.9)
[2018-11-04] MEDS: ACETAMINOPHEN 325 MG TAB PO (00:44)
== END 2018-11-04 01:10 | disposition home or self-care (01) ==
LOC: E/R 11-04 01:10
DX: N39.0 Urinary tract infection, site not specified (principal); B34.9 Viral infection, unspecified; I11.0 Hypertensive heart disease with heart failure; I50.9 Heart failure, unspecified; J45.909 Unspecified asthma, uncomplicated
CPT/HCPCS: 36415; 71045; 80048; 81003; 83880; 84484; 85025; 85610; 85730; 99285-25

== ENCOUNTER 2019-01-19 19:39 | Emergency (ER) | payer MEDICARE ==
[2019-01-19 20:54] LABS: ADD MAN DIFF? NO
[2019-01-19 20:55] LABS: BASOPHIL # 0.1 10^3/ul (0.0-0.1); BASOPHILS % 0.5 % (0.0-2.0); EOSINOPHILS # 0.2 10^3/ul (0.0-0.5); EOSINOPHILS % 1.6 % (0.0-7.0); HEMATOCRIT 39.7 % (37.0-47.0); HEMOGLOBIN 12.6 g/dl (12.0-16.0); LYMPHOCYTES # 2.7 10^3/ul (0.8-2.9); MEAN CORPUSCULAR HEMOGLOBIN 27.4 pg (29.0-33.0); MEAN CORPUSCULAR HGB CONC 31.7 g/dl (32.0-37.0); MEAN CORPUSCULAR VOLUME 86.3 fl (82.0-101.0); MEAN PLATELET VOLUME 11.3 fl (7.4-10.4); MONOCYTE # 0.8 10^3/ul (0.3-0.9); MONOCYTES % 8.1 % (0.0-11.0); NEUTROPHIL # 6.2 10^3/ul (1.6-7.5); NEUTROPHILS % 62.6 % (39.0-77.0); PLATELET COUNT 230 10^3/UL (140-415); RED CELL DISTRIBUTION WIDTH 14.1 % (11.5-14.5)
[2019-01-19] MEDS: morphine 2 MG INJ IV (20:55)
[2019-01-19] MEDS: ONDANSETRON 4 MG INJ IV (20:55)
[2019-01-19] MEDS: SOD CHLORIDE 0.9% 1,000 ML IV (20:55)
[2019-01-19] MEDS ORDERED: LORAZEPAM 2 MG INJ IV (21:00)
[2019-01-19 21:02] LABS: ADD UMIC YES; UR ASCORBIC ACID NEGATIVE (NEGATIVE); UR BILIRUBIN (Dip) NEGATIVE (NEGATIVE); UR BLOOD (Dip) NEGATIVE (NEGATIVE); UR CLARITY CLEAR (CLEAR); UR COLOR YELLOW (YELLOW); UR GLUCOSE (Dip) NEGATIVE (NEGATIVE); UR KETONES (Dip) NEGATIVE (NEGATIVE); UR LEUKOCYTE ESTERASE (Dip) 1+ Leu/ul (NEGATIVE); UR NITRITE (Dip) NEGATIVE (NEGATIVE); UR RBC 1 /HPF (0-5); UR SPECIFIC GRAVITY (Dip) 1.013 (1.003-1.030); UR TOTAL PROTEIN (Dip) NEGATIVE (NEGATIVE); UR UROBILINOGEN (Dip) NEGATIVE (NEGATIVE); UR WBC 4 /HPF (0-5)
[2019-01-19 21:03] LABS: ALANINE AMINOTRANSFERASE 11 IU/L (13-69); ALBUMIN 4.2 g/dl (3.3-4.9); ALBUMIN/GLOBULIN RATIO 1.13; ALKALINE PHOSPHATASE 137 IU/L (42-121); AMYLASE 69 U/L (11-123); ANION GAP 7 (5-13); ASPARTATE AMINO TRANSFERASE 27 IU/L (15-46); BILIRUBIN,INDIRECT 0.3 mg/dl (0-1.1); BILIRUBIN,TOTAL 0.3 mg/dl (0.2-1.3); BLOOD UREA NITROGEN 22 mg/dl (7-20); CALCIUM 8.6 mg/dl (8.4-10.2); CARBON DIOXIDE 28 mmol/L (21-31); CHLORIDE 102 mmol/L (97-110); GLUCOSE 106 mg/dl (70-220); LIPASE 79 U/L (23-300); POTASSIUM 4.8 mmol/L (3.5-5.1); SODIUM 137 mmol/L (135-144); TOTAL PROTEIN 7.9 g/dl (6.1-8.1)
[2019-01-19 21:09] LABS: INR 0.88; PT RATIO 0.9
[2019-01-19 21:10] LABS: PARTIAL THROMBOPLASTIN TIME 30.5 Sec (23.0-35.0)
[2019-01-19 21:14] LABS: TROPONIN-I < 0.012 ng/ml (0.000-0.120)
[2019-01-19] MEDS: IOHEXOL 300MG/ML 150 ML BTL (22:15)
[2019-01-19] MEDS: SOD CHLORIDE 0.9% 100 ML (22:15)
== END 2019-01-20 00:14 | disposition home or self-care (01) ==
LOC: E/R 01-20 00:14
DX: R10.32 Left lower quadrant pain (principal); J45.909 Unspecified asthma, uncomplicated; I10 Essential (primary) hypertension
CPT/HCPCS: 74177; 80053; 81001; 82150; 83690; 84484; 85025; 85610; 85730; 87086; 93005; 96374; 96375; 99285-25